=== PATIENT | female | born 1985 | race Caucasian/White ===

== ENCOUNTER 2017-02-19 09:48 | Day surgery (SDC) | payer OTHER ==
[~2017-02-19 09:48] MED LIST: DEPO-PROVE150 MG/11 IM
== END 2017-02-19 16:50 ==
LOC: SHSC 09:48 → ORW 12:10 → PACU 14:11 → SHSC 15:10
PROC: 0U1 Female Reproductive System, Bypass (ICD-10-PCS; principal; 2017-02-19)
PROC: 0U1 Female Reproductive System, Bypass (ICD-10-PCS; 2017-02-19)
PROC: 8E0W4CZ Robotic Assisted Procedure of Trunk Region, Percutaneous Endoscopic Approach (ICD-10-PCS; 2017-02-19)
DX: Z31.0 Encounter for reversal of previous sterilization (principal); Z79.3 Long term (current) use of hormonal contraceptives; Z98.51 Tubal ligation status; Z98.890 Other specified postprocedural states
CPT/HCPCS: J0690; J3010; J7050; Q9968